=== PATIENT | female | born 1985 | race Caucasian/White ===

== ENCOUNTER → 2017-12-25 20:43 | Outpatient (CLI) | payer SELFPAY | END | disposition home or self-care (01) | LOC: D.LABREF 20:43 | DX: N39.0 Urinary tract infection, site not specified (principal) ==

== ENCOUNTER → 2018-01-14 18:31 | Outpatient (CLI) | payer BC | END | disposition home or self-care (01) | LOC: D.LABREF 18:31 | DX: N39.0 Urinary tract infection, site not specified (principal); R31.9 Hematuria, unspecified ==

== ENCOUNTER → 2018-01-15 12:21 | Outpatient (CLI) | payer BC | END | disposition home or self-care (01) | LOC: D.CT 12:21 | DX: R31.0 Gross hematuria (principal) ==

== ENCOUNTER → 2018-02-25 13:33 | Outpatient (CLI) | payer BC | END | disposition home or self-care (01) | LOC: D.LABREF 13:33 | DX: N39.0 Urinary tract infection, site not specified (principal) ==

== ENCOUNTER → 2018-04-26 17:56 | Outpatient (CLI) | payer BC ==
[2018-05-07 15:15] LABS: CALCULI - COLOR Brown (()); CALCULI - COMMENT Comment: (()); CALCULI - COMMENT Note: (())
== END | disposition home or self-care (01) ==
LOC: D.LABREF 17:56
PROVIDERS: Urology
DX: N20.0 Calculus of kidney (principal)

== ENCOUNTER → 2018-05-03 08:41 | Outpatient (CLI) | payer BC | END | disposition home or self-care (01) | LOC: D.CT 08:41 | DX: R10.9 Unspecified abdominal pain (principal) ==